=== PATIENT | female | born 1950 | race Caucasian/White ===

== ENCOUNTER → 2016-12-28 | Outpatient (CLI) | payer OTHER, MEDICARE | LOC: FIMAGING 08:57 | DX: Z12.31 Encounter for screening mammogram for malignant neoplasm of breast (principal) | CPT/HCPCS: G0202 ==

== ENCOUNTER → 2017-05-30 | Outpatient (CLI) | payer OTHER, MEDICARE | LOC: BMCIMAGING 10:54 | PROVIDERS: ATTEND Allergy & Immunology Allergy | DX: J32.9 Chronic sinusitis, unspecified (principal) ==

== ENCOUNTER → 2017-07-03 | Outpatient (CLI) | payer OTHER, MEDICARE | LOC: BMCIMAGING 14:43 | PROVIDERS: ATTEND Physician Assistant | DX: M25.561 Pain in right knee (principal); M25.461 Effusion, right knee; Z98.890 Other specified postprocedural states ==

== ENCOUNTER → 2017-09-05 | Outpatient (CLI) | payer OTHER, MEDICARE | LOC: BMCIMAGING 10:24 | PROVIDERS: ATTEND Orthopaedic Surgery Hand Surgery | DX: M79.641 Pain in right hand (principal); M19.041 Primary osteoarthritis, right hand; R93.6 Abnormal findings on diagnostic imaging of limbs ==

== ENCOUNTER 2017-10-16 06:59 | Day surgery (SDC) | payer OTHER, MEDICARE ==
[~2017-10-16 06:59] MED LIST: ceFAZolin 2 GM/SWFI 2 GM/20 ML SYR IVP ONE
[2017-10-16] MEDS ORDERED: LIDOCAINE 2% 5 ML SDV IF ONE (08:37)
[2017-10-16] MEDS ORDERED: BUPIVACAINE 0.5% 30 ML SDV MISC SCH (08:37)
[2017-10-16] MEDS ORDERED: LR 1,000 ML IV ONE (08:38)
[2017-10-16] MEDS ORDERED: LIDOCAINE 1% 2 ML INJ ID PRN (08:38)
[2017-10-16 09:07] VITALS: RESP 16
[2017-10-16] MEDS ORDERED: BUPIVACAINE 0.5% 30 ML SDV ONE (10:12)
[2017-10-16] MEDS ORDERED: ceFAZolin 2 GM/SWFI 20 ML SYR IVP ONE (10:40)
[2017-10-16] MEDS ORDERED: LIDOCAINE 2% 100 MG/5 ML SYR ONE (11:40)
--- NOTE | 2017-10-16 11:55 | PDHPUP ---
History & Physical Update H&P update statement: This history and physical update is based on an assessment of the patient which was completed after admission or registration (within 24 hours), but prior to the surgery/procedure. H&P update: H&P reviewed & patient examined, no change in patient's condition since H&P completed
[2017-10-16 15:30] VITALS: BP 143/72; PULSE 64; TEMP 97.9; O2SAT 94
--- NOTE | 2017-10-17 17:09 | GOP ---
[f rep st] OPERATIVE REPORT DATE OF OPERATION: 10/16/2017 SURGEON: Jamaal Gastelum MD ANESTHESIA: Performed with digital block to the small and index finger performed by sd utilizing abo ut 10 cc of 0.5% Marcaine total. PREOPERATIVE DIAGNOSIS: POSTOPERATIVE DIAGNOSIS: 1. Right index finger severe erosive osteoarthritis. 2. Right small finger severe erosive osteoarthritis. PROCEDURE PERFORMED: 1. Right index finger distal interphalangeal joint fusion. 2. Right small finger distal interphalangeal joint fusion. FINDINGS: ESTIMATED BLOOD LOSS: 5 cc. INDICATIONS: This patient was initially seen by me in clinic for different complaint. She also menti oned that she had pain in the index and small finger in the digits of her right hand. This coupled by deformity of the digits and had a flexed deformity. She had been seen and followed by a rheumatologi st for severe osteoarthritis and had a workup for inflammatory arthritic disease in the past. Her fin gers have become progressively more deformed, and now were affecting her function. The patient inquir ed about the options. X-rays were taken, which showed severe arthritis with osteophytes and deformity of the index and small finger. I discussed with her that at this stage of arthritis that she has a D IP joint fusion as indicated. Discussed the risks and benefits. Risks include pain, bleeding, infecti on, wound healing problems, damage to surrounding structures, numbness, pain and stiffness, loss of f unction, need for further operations including hardware removal, amputation. Patient understood the r isks and wished to proceed. DESCRIPTION OF PROCEDURE: The patient was seen in the preoperative holding area. She was given the o pportunity to ask any questions. All her questions were answered. Consent was signed. A digital block was performed by me. She was then taken to the operative suite. Care was taken to transfer the patie nt from the rbelmont to the operating room table. Care was taken to pad all bony prominences. The right upper extremity was prepped and draped in the usual sterile fashion. A time-out was called including surgical and nursing teams confirming the surgical site and procedure to be performed. 2 g of Ancef were given prior to the incision. The right upper extremity was prepped and draped in the usual steri le fashion. I used a glove placed over the hand as a tourniquet and the index finger was approached f irst. I performed a standard H-shaped type incision over the DIP joint. Carefully using the Richey blade I dissected away thick skin flaps from the extensor mechanism. The extensor mechanism was cut, identi fying the joint. The collateral ligaments were cut and the joint was visualized. The prominent osteop hytes were carefully removed with a rongeur, both the middle phalanx head and distal phalanx base. A fter carefully removing these, the cartilage over the joint was carefully removed in a cup and cone t ype fashion to fit. A guidewire was then placed in antegrade fashion into the distal phalanx and then back into the middle phalanx. This was done under fluoroscopy and then the guidewire angle was nettles ed to ensure that there was a straight trajectory. After positioning the guidewire, measured for a sc rew length. Screw length was chosen. Drill was used. After drilling, the screw was placed. The screw had a very good bite with good compression across the fusion site. The finger was straight on the inn er half of the finger position. X-rays were taken and the wound was irrigated. We turned our attention then to the small finger. This finger was quite deformed as well. A similar a pproach for the operation was performed as to the index finger. The small finger bone was thinner kevin n the index finger. On placing the screw, the screw was not completely central in the canal. However , it did have a very good bite across the osteotomy site. It was decided to leave the screw in this p osition. The fusion site was well compressed with no motion. This wound was irrigated as well. Both wounds were closed using a 4-0 Monocryl for the extensor tendon and then 5-0 nylon for the skin. Sterile dressings were applied. Coban was placed and the patient placed in a splint. She tolerated t he procedure well in stable condition. PREOPERATIVE DIAGNOSES 1. Right index finger severe erosive osteoarthritis. 2. Right small finger severe erosive osteoarthritis. IMPLANTS USED: Acumed Acutrak micro screws. POSTOPERATIVE CONDITION: Stable. POSTOPERATIVE PLAN: The patient will follow up in clinic in 10-14 days for a wound check with remova l of sutures. X-rays will be taken to assess healing of the fusion. /[id number]/MODL
== END 2017-10-16 15:10 | disposition home or self-care (01) ==
LOC: FSGY 06:59
PROVIDERS: ATTEND Orthopaedic Surgery Hand Surgery
PROC: 0RGW04Z Fusion of Right Finger Phalangeal Joint with Internal Fixation Device, Open Approach (ICD-10-PCS; principal; 2017-10-16 11:30)
DX: M19.041 Primary osteoarthritis, right hand (principal); I10 Essential (primary) hypertension; E78.5 Hyperlipidemia, unspecified
CPT/HCPCS: C1713; J0690; J2001

== ENCOUNTER → 2017-10-31 | Outpatient (CLI) | payer OTHER, MEDICARE | LOC: BMCIMAGING 08:22 | PROVIDERS: ATTEND Orthopaedic Surgery Hand Surgery | DX: Z47.1 Aftercare following joint replacement surgery (principal); Z96.691 Finger-joint replacement of right hand ==

== ENCOUNTER → 2017-11-27 | Outpatient (CLI) | payer OTHER, MEDICARE | LOC: BMCIMAGING 12:17 | PROVIDERS: ATTEND Orthopaedic Surgery Hand Surgery | DX: Z09 Encounter for follow-up examination after completed treatment for conditions other than malignant neoplasm (principal); Z98.1 Arthrodesis status ==

== ENCOUNTER → 2018-01-08 | Outpatient (CLI) | payer OTHER, MEDICARE | LOC: BMCIMAGING 12:38 | PROVIDERS: ATTEND Orthopaedic Surgery Hand Surgery | DX: Z47.1 Aftercare following joint replacement surgery (principal); Z96.691 Finger-joint replacement of right hand ==

== ENCOUNTER → 2018-02-07 | Outpatient (CLI) | payer OTHER, MEDICARE | LOC: FIMAGING 12:00 | PROVIDERS: ATTEND Obstetrics & Gynecology Gynecology | DX: Z12.31 Encounter for screening mammogram for malignant neoplasm of breast (principal) ==

== ENCOUNTER → 2019-01-02 | Outpatient (CLI) | payer OTHER, MEDICARE | LOC: BMCIMAGING 14:05 | PROVIDERS: ATTEND Nurse Practitioner Adult Health | DX: M25.572 Pain in left ankle and joints of left foot (principal); M79.89 Other specified soft tissue disorders ==